=== PATIENT | male | born 1955 | race Caucasian/White ===

== ENCOUNTER 2016-10-11 14:37 | Emergency (ER) | payer MEDICARE ==
--- NOTE | 2016-10-11 14:44 | EDM.PDOC ---
ED HPI GENERAL MEDICAL PROBLEM - General Chief Complaint: Lower Extremity Injury/Pain Stated Complaint: FOOT PAIN, [id number] Time Seen by Provider: 10/11/16 14:42 Source of Information: Reports: Patient, Old Records, RN, RN Notes Reviewed History Limitations: Reports: No Limitations - History of Present Illness INITIAL COMMENTS - FREE TEXT/NARRATIVE: Arrives by POV with c/o right foot pain with redness and swelling. Denies any injury. Patient first noticed the redness yesterday. He does have a small cut of his third toe that occurred several days prior when he was trimming his nail. He is unsure if it is related. Denies fevers or chills. Severity: Moderate Improves with: Reports: None Right Feet Pain Score (Numeric/FACES): 5 - Related Data Allergies Allergy/AdvReac Type Severity Reaction Status Date / Time pseudoephedrine Allergy Tachycardia Verified 10/11/16 14:43 Home Meds: Home Meds Gabapentin [Gabapentin] 800 mg PO TID 04/03/14 [History] Propranolol HCl [Propranolol HCl ER] 120 mg PO DAILY 04/03/14 [History] oxyCODONE HCl [Oxycontin] 80 mg PO TID 04/03/14 [History] Zolpidem [Ambien] 10 mg PO BEDTIME 10/11/16 [History] Past Medical History HEENT History: Reports: Impaired Vision Cardiovascular History: Reports: Hypertension Respiratory History: Reports: COPD Gastrointestinal History: Reports: Cirrhosis, Hepatitis (C virus.), Other (See Below) (Chronic hepaittis C. Gastric erosion.) Musculoskeletal History: Reports: Back Pain, Chronic, Fibromyalgia, Other (See Below) (DJD. Pedal edema.) Neurological History: Reports: Headaches, Chronic Psychiatric History: Reports: Addiction (alcohol), Anxiety Endocrine/Metabolic History: Reports: Obesity/BMI 30+, Other (See Below) ( hypogonadism) Immunologic History: Reports: Other (See Below) (thrombocytopenia) - Past Surgical History GI Surgical History: Reports: Appendectomy Social & Family History - Family History Family Medical History: Noncontributory - Tobacco Use Smoking Status *Q: Former Smoker Tobacco Use Within Last Twelve Months: Cigarettes Years of Tobacco use: 5 Month Tobacco Last Used: >20 years Second Hand Smoke Exposure: No - Caffeine Use Caffeine Use: Reports: Coffee, Soda, Tea - Alcohol Use Alcohol Use History: Yes Days Per Week of Alcohol Use: 0 Alcohol Use in Last Twelve Months: No Alcohol Use Frequency: Not Used in Over 1 Year - Recreational Drug Use Recreational Drug Use: No - Living Situation & Occupation Occupation: Disabled Review of Systems - Review of Systems Review Of Systems: ROS reveals no pertinent complaints other than HPI. ED EXAM, GENERAL - Physical Exam Exam: See Below Exam Limited By: No Limitations General Appearance: Alert, WD/WN, No Apparent Distress, Obese Throat/Mouth: Normal Inspection Head: Atraumatic, Normocephalic Neck: Normal Inspection, Supple, Non-Tender, Full Range of Motion Respiratory/Chest: No Respiratory Distress, Lungs Clear, Normal Breath Sounds, No Accessory Muscle Use, Chest Non-Tender Cardiovascular: Normal Peripheral Pulses, Regular Rate, Rhythm, No Edema, No Gallop, No JVD, No Murmur, No Rub Extremities: Normal Range of Motion, No Pedal Edema, Normal Capillary Refill, Increased Warmth (Rt foot), Redness (dorsum of Rt foot, skin intact on foot, distal Rt 3rd toe with small healing abrasion/lac. no drainage) Neurological: Alert, Oriented, CN II-XII Intact, Normal Cognition, No Motor/ Sensory Deficits Psychiatric: Normal Affect, Normal Mood Course - Vital Signs Last Recorded V/S: Last Vital Signs Temp 36.6 C 10/11/16 15:47 Pulse 66 10/11/16 15:47 Resp 18 10/11/16 15:47 BP 148/86 H 10/11/16 15:47 Pulse Ox 97 10/11/16 15:47 - Orders/Labs/Meds Orders: Active Orders 24 hr Category Date Time Status Peripheral IV Care [RC] . DIRECTED Care 10/11/16 15:01 Active Sodium Chloride 0.9% [Saline Flush] Med 10/11/16 15:00 Active 10 ml FLUSH ASDIRECTED PRN Peripheral IV Insertion Adult [OM.PC] Stat Oth 10/11/16 15:00 Ordered Medication Orders Sodium Chloride (Saline Flush) 10 ml FLUSH ASDIRECTED PRN PRN Reason: Keep Vein Open Last Admin: 10/11/16 16:49 Dose: 10 ml Labs: Laboratory Tests 10/11/16 10/11/16 10/11/16 Range/Units 15:04 15:04 15:04 WBC 8.0 (5.0-10.0) 10^3/uL RBC 4.66 (4.6-6.2) 10^6/uL Hgb 14.5 (14.0-18.0) g/dL Hct 41.8 (40.0-54.0) % MCV 89.7 (80-100) fL MCH 31.1 (27.0-34.0) pg MCHC 34.7 (33.0-35.0) g/dL Plt Count 127 L (150-450) 10^3/uL Neut % (Auto) 67.4 (42.2-75.2) % Lymph % (Auto) 21.4 (20.5-50.1) % Sebastian % (Auto) 10.5 H (2-8) % Eos % (Auto) 0.6 L (1.0-3.0) % Baso % (Auto) 0.1 (0.0-1.0) % Sodium 139 (135-145) mmol/L Potassium 3.8 (3.6-5.0) mmol/L Chloride 100 L (101-111) mmol/L Carbon Dioxide 29.0 (21.0-31.0) mmol/L Anion Gap 13.8 BUN 11 (7-18) mg/dL Creatinine 0.7 (0.6-1.3) mg/dL Est Cr Clr Drug Dosing 102.54 mL/min Estimated GFR (MDRD) > 60 BUN/Creatinine Ratio 15.71 Glucose 110 H (74-105) mg/dL Uric Acid 6.7 (2.6-7.2) mg/dL Calcium 9.2 (8.4-10.2) mg/dl Total Bilirubin 1.2 H (0.2-1.0) mg/dL AST 30 (10-42) IU/L ALT 23 (10-60) IU/L Alkaline Phosphatase 59 (42-121) IU/L C-Reactive Protein 1.5 H (0.0-1.3) mg/dL Total Protein 7.4 (6.7-8.2) g/dl Albumin 4.0 (3.2-5.5) g/dl Globulin 3.4 Albumin/Globulin Ratio 1.18 Meds: Medications Generic Name Dose Route Start Last Admin Trade Name Freq PRN Reason Stop Dose Admin Sodium Chloride 10 ml 10/11/16 15:00 10/11/16 16:49 Saline Flush FLUSH 10 ml ASDIRECTED PRN Administration Keep Vein Open Discontinued Medications Generic Name Dose Route Start Last Admin Trade Name Singh PRN Reason Stop Dose Admin Diphenhydramine HCl 25 mg 10/11/16 15:50 10/11/16 16:48 Benadryl IVPUSH 10/11/16 15:51 25 mg ONETIME ONE Administration Vancomycin HCl 1 gm/ Sodium 250 mls @ 167 mls/hr 10/11/16 15:51 10/11/16 16: 48 Chloride IV 10/11/16 17:20 167 mls/hr ONETIME ONE Administration Ketorolac Tromethamine 30 mg 10/11/16 15:30 10/11/16 15:47 Toradol IVPUSH 10/11/16 15:31 30 mg ONETIME ONE Administration Departure - Departure Time of Disposition: 18:12 Disposition: Home, Self-Care 01 Condition: good Clinical Impression: Cellulitis of right foot - Discharge Information Instructions: Cellulitis, Adult, [id number] Additional Instructions: RX: Cephalexin 500mg. RX: Clindamycin 500mg. Bactroban ointment 0.2%. Rest and elevate right foot. Follow up in clinic tomorrow for recheck. - My Orders Last 24 Hours: My Active Orders 10/11/16 15:00 Sodium Chloride 0.9% [Saline Flush] 10 ml FLUSH ASDIRECTED PRN Peripheral IV Insertion Adult [OM.PC] Stat 10/11/16 15:01 Peripheral IV Care [RC] . DIRECTED - Assessment/Plan Last 24 Hours: My Active Orders 10/11/16 15:00 Sodium Chloride 0.9% [Saline Flush] 10 ml FLUSH ASDIRECTED PRN Peripheral IV Insertion Adult [OM.PC] Stat 10/11/16 15:01 Peripheral IV Care [RC] . DIRECTED
[2016-10-11] MEDS ORDERED: Sodium Chloride 0.9% 10 ML Syringe FLUSH PRN (15:00)
[2016-10-11] MEDS ORDERED: Ketorolac 30 MG/ML SDV IVPUSH ONE (15:30)
[2016-10-11 15:34] LABS: CHLORIDE,CL 100 mmol/L (101-111); SODIUM,NA 139 mmol/L (135-145)
[2016-10-11 15:48] VITALS: BP 148/86
[2016-10-11] MEDS ORDERED: diphenhydrAMINE 50 MG/ML SDV IVPUSH ONE (15:50)
== END 2016-10-11 18:47 | disposition home or self-care (01) ==
LOC: DL.ED 14:37
DX: L03.115 Cellulitis of right lower limb (principal); I10 Essential (primary) hypertension; J44.9 Chronic obstructive pulmonary disease, unspecified; F41.9 Anxiety disorder, unspecified; E66.9 Obesity, unspecified; Z79.899 Other long term (current) drug therapy; Z87.891 Personal history of nicotine dependence; Z98.890 Other specified postprocedural states; Z88.8 Allergy status to other drugs, medicaments and biological substances
CPT/HCPCS: 36415; 80053; 84550; 85025; 86140; 96365; 96366; 96375; 99283; J1200; J1885; J3370; J7050; 99284

== ENCOUNTER 2016-11-01 13:53 | Emergency (ER) | payer MEDICARE ==
[2016-11-01 14:09] VITALS: BP 131/76
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
[2016-11-01] MEDS ORDERED: Ketorolac 30 MG/ML SDV IM ONE (14:24)
== END 2016-11-01 15:22 | disposition home or self-care (01) ==
LOC: DL.ED 13:53
DX: S22.32XA Fracture of one rib, left side, initial encounter for closed fracture (principal); I10 Essential (primary) hypertension; J44.9 Chronic obstructive pulmonary disease, unspecified; F41.9 Anxiety disorder, unspecified; E66.9 Obesity, unspecified; Z90.49 Acquired absence of other specified parts of digestive tract; Z87.891 Personal history of nicotine dependence; Z79.899 Other long term (current) drug therapy; Z88.8 Allergy status to other drugs, medicaments and biological substances; V86.59XA Driver of other special all-terrain or other off-road motor vehicle injured in nontraffic accident, initial encounter
CPT/HCPCS: 71020; 96372; 99283; J1885